=== PATIENT | female | born 1970 | race Caucasian/White ===

== ENCOUNTER 2017-06-26 09:01 | Emergency (ER) | payer OTHER ==
[2017-06-26] MEDS ORDERED: METHYLPREDNISOLONE INJ 125 MG/2 ML SDV IV ONE (09:02)
[2017-06-26] MEDS ORDERED: FAMOTIDINE INJ/PF 20 MG/2 ML SDV IV ONE (09:02)
[2017-06-26] MEDS ORDERED: DIPHENHYDRAMINE HCL 50 MG/ML VIAL IV ONE (09:02)
[2017-06-26] MEDS ORDERED: EPINEPHRINE INJ/PF 1 MG/1 ML AMPULE IM ONE (09:03)
[2017-06-26] MEDS ORDERED: EPINEPHRINE INJ/PF 1 MG/1 ML AMPULE ONE (09:06)
--- NOTE | 2017-06-26 09:08 | ER Document Report ---
ED General - General Stated Complaint: POSSIBLE ALLERGIC REACTION Time Seen by Provider: 06/26/17 09:02 Mode of Arrival: Ambulatory Information source: Patient Notes: 46-year-old female presents with complaints of difficulty breathing shortness of breath. Patient notes she stepped into some fire ants has bites on the left foot. Patient in mild respiratory distress notes it is difficult to breathe. She denies any swelling of her lips - HPI Onset: Just prior to arrival Onset/Duration: Sudden Quality of pain: No pain Severity: Moderate Pain Level: Denies Associated symptoms: Shortness of breath Exacerbated by: Denies Relieved by: Denies Similar symptoms previously: No Recently seen / treated by doctor: No - Related Data Allergies/Adverse Reactions: mushroom Allergy (Verified 06/26/17 09:49) bees Allergy (Uncoded 06/26/17 09:49) fire aunts Allergy (Uncoded 06/26/17 09:49) Past Medical History - Social History Smoking Status: Never Smoker Cigarette use (# per day): No Chew tobacco use (# tins/day): No Smoking Education Provided: No Family History: Reviewed & Not Pertinent Review of Systems - Review of Systems Notes: REVIEW OF SYSTEMS: CONSTITUTIONAL : Denies fever, chills, or sweats. Denies recent illness. EENT: Admits to difficulty swallowing CARDIOVASCULAR: Denies chest pain. Denies palpitations or racing or irregular heart beat. Denies ankle edema. RESPIRATORY: Admits to difficulty breathing shortness of breath GASTROINTESTINAL: Denies abdominal pain or distention. Denies nausea, vomiting , or diarrhea. Denies blood in vomitus, stools, or per rectum. Denies black, tarry stools. Denies constipation. GENITOURINARY: Denies difficulty urinating, painful urination, burning, frequency, blood in urine, or discharge. FEMALE GENITOURINARY: Denies vaginal bleeding, heavy or abnormal periods, irregular periods. Denies vaginal discharge or odor. MUSCULOSKELETAL: Denies back or neck pain or stiffness. Denies joint pain or swelling. SKIN: Denies rash, lesions or sores. HEMATOLOGIC : Denies easy bruising or bleeding. LYMPHATIC: Denies swollen, enlarged glands. NEUROLOGICAL: Denies confusion or altered mental status. Denies passing out or loss of consciousness. Denies dizziness or lightheadedness. Denies headache. Denies weakness or paralysis or loss of use of either side. Denies problems with gait or speech. Denies sensory loss, numbness, or tingling. Denies seizures. PSYCHIATRIC: Denies anxiety or stress. Denies depression, suicidal ideation, or homicidal ideation. ALL OTHER SYSTEMS REVIEWED AND NEGATIVE. PHYSICAL EXAMINATION: GENERAL: Well-appearing, well-nourished and in moderate distress HEAD: Atraumatic, normocephalic. EYES: Pupils equal round and reactive to light, extraocular movements intact, conjunctiva are normal. ENT: Nares patent, oropharynx clear without exudates. Moist mucous membranes. NECK: Stridor LUNGS: Upper airway wheezing HEART: Regular rate and rhythm without murmurs ABDOMEN: Soft, nontender, nondistended abdomen. No guarding, no rebound. No masses appreciated. Female : deferred Musculoskeletal: Normal range of motion, no pitting or edema. No cyanosis. NEUROLOGICAL: Cranial nerves grossly intact. Normal speech, normal gait. Normal sensory, motor exams PSYCH: Normal mood, normal affect. SKIN: Multiple erythematous bites left foot Dictation was performed using [employer] voice recognition software Physical Exam - Vital signs Vitals: Pulse Ox 100 06/26/17 09:04 Course - Re-evaluation Re-evalutation: 06/26/17 09:06 Patient was started on epi immediately, she had taken benadryl prior to arrival 06/26/17 10:20 Patient's allergic reaction symptoms have improved, she is satting well on room air, patient has a history of migraine headaches and states she is now having a migraine and will be treated for such 06/26/17 11:08 Patient wishes to be discharged home states her symptoms are resolved. I did explain to her my concerns of return symptoms with the use of epinephrine. Otherwise patient looks well is in no distress I will discharge home with very strict return precautions After performing a Medical Screening Examination, I estimate there is LOW risk for AIRWAY COMPROMISE, ANAPHYLAXIS, CELLULITIS, EPIGLOTTIS, or NECROTIZING FASCIITIS, thus I consider the discharge disposition reasonable. Also, there is no evidence or peritonitis, sepsis, or toxicity. I have reevaluated this patient multiple times and no significant life threatening changes are noted. The patient and I have discussed the diagnosis and risks, and we agree with discharging home with close follow-up with the understanding that symptoms and presentations can change. We also discussed returning to the Emergency Department immediately if new or worsening symptoms occur. We have discussed the symptoms which are most concerning (e.g., difficulty breathing or swallowing , fever, changing or worsening pain) that necessitate immediate return. - Vital Signs Vital signs: Temp Pulse Resp BP Pulse Ox 98.7 F 105 H 18 116/77 100 06/26/17 09:28 06/26/17 09:28 06/26/17 10:01 06/26/17 10:01 06/26/17 10:01 Critical Care Note - Critical Care Note Total time excluding time spent on procedures (mins): 37 Comments: minutes of critical care time spent in direct contact evaluating and reevaluating the patient, treating symptoms, reviewing labs and studies and speaking with family and consultants excluding any procedures Discharge - Discharge Clinical Impression: Allergic reaction Qualifiers: Encounter type: initial encounter Qualified Code(s): T78.40XA - Allergy, unspecified, initial encounter Condition: Stable Disposition: HOME, SELF-CARE Instructions: Acute Allergic Reaction ([facility]) Additional Instructions: You must use the EpiPen if your symptoms return, you must return immediately if there are any other concerns Prescriptions: Diphenhydramine HCl [Benadryl 50 mg Capsule] 1 cap PO Q6 PRN #20 capsule PRN Reason: Epinephrine [Epipen] 0.3 mg IM ASDIR PRN #1 auto.injct PRN Reason: Famotidine [Pepcid 20 mg Tablet] 20 mg PO DAILY #5 tablet Prednisone 60 mg PO DAILY 5 Days
[2017-06-26] MEDS ORDERED: PROCHLORPERAZINE EDISYLATE INJ 10 MG/2 ML VIAL IV ONE (09:52)
[2017-06-26 11:17] VITALS: BP 125/75
== END 2017-06-26 11:21 | disposition home or self-care (01) ==
LOC: ER 09:01
DX: T78.40XA Allergy, unspecified, initial encounter (principal); R06.02 Shortness of breath; W57.XXXA Bitten or stung by nonvenomous insect and other nonvenomous arthropods, initial encounter
CPT/HCPCS: 99291; 96374; 96375; J1200; J0171; J2930; J0780; S0028